=== PATIENT | female | born 1990 | race Caucasian/White ===

== ENCOUNTER 2017-04-15 08:50 | Emergency (ER) | payer SELFPAY, OTHER ==
[2017-04-15 09:19] LABS: URINE HCG POC HCG NEGATIVE (Negative)
[2017-04-15] MEDS: FAMOTIDINE 20 MG/2 ML VIAL IVP ×2 (09:23)
[2017-04-15] MEDS: IV NORMAL SALINE 1000ML BAG 1,000 ML IV ×2 (09:23)
[2017-04-15] MEDS: LIDO:MAALOX:DONNATAL 1:1:1 15 ML SINGLE DOSE SWSW ×2 (09:23)
[2017-04-15 09:31] LABS: ANION GAP 13 (6-14); BASO # 0.1 x10^3/uL (0.0-0.2); BASO % 0 % (0-3); BLOOD UREA NITROGEN 13 mg/dL (7-20); BUN/CREATININE RATIO 19 (6-20); CALCIUM 9.6 mg/dL (8.5-10.1); CARBON DIOXIDE 24 mmol/L (21-32); CHLORIDE 102 mmol/L (98-107); CREATININE 0.7 mg/dL (0.6-1.0); EOS % 0 % (0-3); GFR 101.1; GLUCOSE 179 mg/dL (70-99); HEMATOCRIT 47.3 % (36.0-47.0); HEMOGLOBIN 15.1 g/dL (12.0-15.5); LYMPH # 2.6 x10^3/uL (1.0-4.8); LYMPH % 13 % (24-48); MEAN CORPUSCULAR HEMOGLOBIN 27 pg (25-35); MEAN CORPUSCULAR HGB CONC 32 g/dL (31-37); MEAN CORPUSCULAR VOLUME 85 fL (79-100); MONO % 5 % (0-9); NEUT # 16.5 x10^3uL (1.8-7.7); NEUT % 82 % (31-73); PLATELET COUNT 235 x10^3/uL (140-400); POTASSIUM 3.6 mmol/L (3.5-5.1); RED BLOOD COUNT 5.56 x10^6/uL (3.50-5.40); RED CELL DISTRIBUTION WIDTH 14.8 % (11.5-14.5); SODIUM 139 mmol/L (136-145); WHITE BLOOD COUNT 20.2 x10^3/uL (4.0-11.0)
[2017-04-15 09:33] LABS: ADD MAN DIFF? YES; BILIRUBIN,URINE NEGATIVE (NEG); CLARITY,URINE CLEAR; COLOR,URINE AMBER; GLUCOSE,URINE NEGATIVE (NEG); NITRITE,URINE NEGATIVE (NEG); PH,URINE 5.5; PROTEIN,URINE NEGATIVE (NEG-TRACE)
[2017-04-15 09:36] LABS: ETHANOL < 10 mg/dL (0-10)
[2017-04-15 09:38] LABS: ALBUMIN 4.4 g/dL (3.4-5.0); ALBUMIN/GLOBULIN RATIO 1.1 (1.0-1.7); ALK PHOS 150 U/L (46-116); ALT (SGPT) 228 U/L (14-59); AST (SGOT) 607 U/L (15-37); BARBITURATES NEG (NEG); BENZODIAZEPINES NEG (NEG); CANNABINOIDS NEG (NEG); COCAINE NEG (NEG); METHADONE NEG (NEG); OPIATES NEG (NEG); PHENCYCLIDINE NEG (NEG); TOTAL PROTEIN 8.3 g/dL (6.4-8.2)
[2017-04-15 09:40] LABS: AMPHETAMINE/METHAMPHETAMINE NEG (NEG); ETHANOL, URINE NEG (NEG)
[2017-04-15 10:01] LABS: BACTERIA,URINE MOD /HPF (0-FEW); RBC,URINE 0 /HPF (0-2); SQUAMOUS EPITHELIAL CELL,UR MANY /LPF
[2017-04-15 10:05] LABS: % BANDS 3 % (0-9); % LYMPHS 12 % (24-48); % MONOS 4 % (0-10); % SEGS 81 % (35-66); PLT ESTIMATE ADEQUATE (ADEQUATE)
[2017-04-15] MEDS ORDERED: CONTRAST GIVEN MC ×2 (10:15)
[2017-04-15] MEDS: IOHEXOL 300 MG/ML 100ML VIAL. IV ×2 (10:21)
[2017-04-15 10:30] LABS: LIPASE 25400 U/L (73-393)
[2017-04-15] MEDS: KETOROLAC 30 MG/ML INJ. IV ×2 (10:36)
== END 2017-04-15 12:32 | disposition left against medical advice (07) ==
LOC: ER 08:50
DX: K85.90 Acute pancreatitis without necrosis or infection, unspecified (principal); K21.9 Gastro-esophageal reflux disease without esophagitis; Z88.1 Allergy status to other antibiotic agents
CPT/HCPCS: 36415; 74177; 80053; 80307; 81001; 81025; 83690; 85007; 85025; 96361; 96374; 96375; 99285-25; G0480; J1885; J7030; Q9967; S0028

== ENCOUNTER → 2019-02-04 | Outpatient (CLI) | payer MEDICAID ==
[2017-04-15 12:00] VITALS: BP 115/76
--- NOTE | 2019-02-04 17:01 | RAD ---
EXAM: Left lower extremity venous Doppler. HISTORY: Left lower extremity pain/swelling. COMPARISON: None. FINDINGS: Grayscale and Doppler analysis of the left lower extremity deep venous system was performed with graded compression and augmentation. The common femoral, greater saphenous, superficial femoral, popliteal and calf veins were assessed. There is no evidence of deep venous thrombosis. IMPRESSION: 1. No evidence of deep venous thrombosis. Electronically signed by: Arnold Garcia MD (02/04/2019 4:58 PM) [place] [id number]
== END | disposition home or self-care (01) ==
LOC: US 15:37
PROVIDERS: ATTEND Obstetrics & Gynecology
DX: M79.605 Pain in left leg (principal); M79.89 Other specified soft tissue disorders
CPT/HCPCS: 93971